=== PATIENT | female | born 1970 | race Caucasian/White ===

== ENCOUNTER 2017-11-27 07:18 | Emergency (ER) | payer MEDICAID ==
[2017-11-27 07:26] VITALS: RESP 16; O2SAT 96
--- NOTE | 2017-11-27 07:40 | EDPHY ---
H & P Time Seen by Provider: 11/27/17 07:40 HPI/ROS: CHIEF COMPLAINT: Chest pain and leg redness transferred from [facility] HISTORY OF PRESENT ILLNESS: Patient started with what she thinks is a viral URI around November 07. It started with her being hoarse and losing her voice and having a nonproductive cough. About 9 days ago she developed some redness in the medial side of her right calf, associated with some swelling and a little bit of pain. 2 days ago she developed right-sided pleuritic chest pain and presented to [facility] today. She had a normal EKG and a negative troponin at 4:43 a.m. But a high D-dimer. Patient presents for evaluation of her elevated D-dimer. Chest pain is not exertional. It is a little bit worse with cough movement and deep breath. It does not radiate. She has no history of trauma to her right leg and no hemoptysis. No family history of venous thromboembolism and no previous VTE. REVIEW OF SYSTEMS: Eye: no change in vision ENT: no sore throat Cardiac: HPI no palpitations Pulmonary: no cough or SOB Abdomen: no vomiting, diarrhea, abdominal pain Musculoskeletal: HPI right leg Skin: Little bit of right leg redness on the medial calf. Neuro: no headache Constitutional: no fever : no urinary symptoms A comprehensive 10 point review of systems is otherwise negative aside from elements mentioned in the history of present illness. PAST MEDICAL HISTORY: Family history negative for venous thromboembolism Social history: No recent travel or immobilization, nonsmoker, no diabetes hypertension or hypercholesterolemia. Nonsmoker General Appearance: Alert and conversant, cooperative. Eyes: No scleral icterus. ENT, Mouth: Normal mucous membranes. Respiratory: Normal respiratory effort, breath sounds equal, lungs are clear to auscultation. Little bit tender to palpation on the right anterior chest wall below the right breast. Cardiovascular: Regular rate and rhythm. Gastrointestinal: Abdomen is soft and non tender. Neurological: Alert, face symmetric, normal motor and sensory in extremities. Skin: Redness of the right medial calf 5 x 5 cm with proximal 1 x 5 cm streaking. No induration or fluctuance or crepitus. Compartments are soft. Musculoskeletal: Right leg slightly swollen compared to the left. Psychiatric: Not agitated. Emergency Department course/MDM: Lower suspicion for ACS. Repeat EKG does not show ST changes. Plan for ultrasound of the right leg, CT angiography of the chest discussed and consented. 822: Ultrasound shows DVT all in the calf and not above the knee, both superficial and deep clot present, Dr. Girard. Results discussed with the patient 954: No PE on CTA per Dr. Girard. CTA performed because of chest pain, positive DVT on ultrasound, elevated D-dimer. 1003: Results discussed with patient and her sister and mother, anticoagulation with oral Eliquis discussed and consented. No antibiotics. Stable for outpatient follow-up at her clinic next week, hyper coagulable panel has been sent. 1352: [place] in [place] not available for discussion of followup tests. Discussed with patient by phone, she will ensure her PCP follows up on hypercoag panel pending in our lab in the next week. Smoking Status: Never smoked Constitutional: Initial Vital Signs Temperature (C) 36.4 C 11/27/17 07:23 Heart Rate 73 11/27/17 07:23 Respiratory Rate 16 11/27/17 07:23 Blood Pressure 110/68 11/27/17 07:23 O2 Sat (%) 96 11/27/17 07:23 O2 Delivery Mode Room Air Allergies/Adverse Reactions: meloxicam Allergy (Verified 11/27/17 07:23) tramadol Allergy (Verified 11/27/17 07:22) Home Medications: Medication Instructions Recorded Apixaban [Eliquis] 10 mg PO BID #14 tab 11/27/17 Medical Decision Making - Diagnostics EKG Interpretation: 12-lead EKG interpreted by me; official reading is in trace master. My interpretation is sinus rhythm rate 74 no ischemic changes. Imaging Results: Imaging Impressions Extremity Venous Study 11/27/17 07:33 Impression: Superficial and deep venous thrombosis of the right calf below the popliteal vein, without cephalad extension. Results called to Dr. Braulio Chamberlain at 8:20 AM Chest/Thorax CTA 11/27/17 07:52 Impression: 1. Negative CT examination of the chest for acute pulmonary thromboembolic disease. 2. Patchy atelectasis or infiltrate right middle lobe and lingula. Results called to Dr. Braulio Chamberlain at 9:50 AM at the time of the interpretation. Imaging: Discussed imaging studies w/ call specialist Radiologist, I viewed and interpreted images myself Differential Diagnosis: Differential diagnosis considered for chest pain including but not limited to myocardial ischemia, aortic dissection, pericarditis, pulmonary embolus, chest wall pain, pleural inflammation and pulmonary infectious causes. - Data Points Laboratory Results: 11/27/17 11/27/17 11/27/17 08:40 08:40 07:52 PT 13.6 SEC SEC (12.0-15.0) INR 1.02 (0.83-1.16) APTT 26.1 SEC SEC (23.0-38.0) Fibrinogen 336 mg/dL mg/dL (214-456) D-Dimer 1.15 ug/mLFEU H ug/mLFEU (0.00-0.50) Protein C Activity Pending Protein S Activity Pending Antithrombin III Activ Pending Factor V Leiden Mutat Pending Factor V Leiden Interp Pending Fact V Leiden Review By Pending Troponin I < 0.012 ng/mL ng/mL (0.000-0.034) Anti-Cardiolipin IgG Ab Pending Anti-Cardiolipin IgM Ab Pending Medications Given: Discontinued Medications Apixaban (Eliquis) 10 mg PO EDNOW ONE Stop: 11/27/17 10:25 Last Admin: 11/27/17 11:05 Dose: 10 mg Lorazepam (Ativan Injection) 1 mg IVP EDNOW ONE Stop: 11/27/17 08:45 Last Admin: 11/27/17 08:48 Dose: 1 mg Departure - Departure Disposition: Home, Routine, Self-Care Clinical Impression: DVT (deep venous thrombosis) Qualifiers: DVT location: lower extremity Affected thrombotic vein of extremity: unspecified vein of extremity Chronicity: acute Laterality: right Qualified Code (s): I82.401 - Acute embolism and thrombosis of unspecified deep veins of right lower extremity Condition: Good Instructions: Deep Vein Thrombosis (ED) Additional Instructions: You need to follow-up with your primary care clinic next week to get further prescription for anticoagulants, and discuss duration of treatment. Referrals: NONE *PRIMARY CARE P,. [Primary Care Provider] - As per Instructions (Please follow-up next week at [facility]. Return immediately for worsening chest pain or any trouble breathing. No contact sports as discussed. Seek medical care right away if you hit your head.) Prescriptions: Apixaban [Eliquis] 10 mg PO BID #14 tab
[2017-11-27] MEDS ORDERED: IOPAMIDOL (ISOVUE 370) 100 ML BTL IV ONE (07:57)
--- NOTE | 2017-11-27 08:28 | CPEKG ---
Heart Rate: 74 RR Interval: 811 P-R Interval: 132 QRSD Interval: 78 QT Interval: 384 QTC Interval: 426 P Sundown: 75 QRS Sundown: 40 T Wave Sundown: 31 EKG Severity - NORMAL ECG - EKG Impression: SINUS RHYTHM Electronically Signed By: Braulio Chamberlain 27-Nov-2017 08:27:36
[2017-11-27] MEDS ORDERED: LORazepam 2 MG/ML INJ IVP ONE (08:44)
[2017-11-27 09:19] LABS: INR 1.02 (0.83-1.16); PROTIME(PATIENT) 13.6 SEC (12.0-15.0)
[2017-11-27] MEDS ORDERED: APIXABAN 5 MG TAB PO ONE (10:24)
[2017-11-27 11:08] VITALS: BP 109/77; PULSE 77; TEMP 97.9
== END 2017-11-27 11:07 | disposition home or self-care (01) ==
DX: I82.401 Acute embolism and thrombosis of unspecified deep veins of right lower extremity (principal)
CPT/HCPCS: 85300-90; 85303-90; 85306-90; 86147-90; 96374; J2060; Q9967